=== PATIENT | male | born 1935 | race Caucasian/White ===

== ENCOUNTER 2018-01-06 21:32 | Inpatient (IN) | payer OTHER ==
[~2018-01-06] VITALS: Ht 165.1 cm; Wt 83.9 kg
[2018-01-06] MEDS ORDERED: CARVEDILOL12.5 M1 PO (22:17)
[2018-01-06] MEDS ORDERED: GLUCOTROL10 MG PO (22:17)
[2018-01-06] MEDS ORDERED: LOSARTAN POTAS100 M1 PO (22:18)
[2018-01-06] MEDS ORDERED: METFORMIN HCL1000 MG PO (22:19)
[2018-01-06] MEDS ORDERED: ASPIR 8181 MG PO (22:19)
[2018-01-06 22:43] LABS: BASOPHIL % 0.6 % (0-2); PLATELET COUNT 273 x10^3mcL (130-400)
[2018-01-06 22:53] LABS: CALCIUM 8.2 mg/dL (8.5-10.1); CARBON DIOXIDE 24.4 mmol/L (21-32); CHLORIDE SERUM 97 mmol/L (98-107); CREATININE SERUM 1.7 mg/dL (0.7-1.3); GLUCOSE SERUM 133 mg/dL (74-106); POTASSIUM SERUM 4.2 mmol/L (3.5-5.1); SODIUM SERUM 130 mmol/L (136-145)
[2018-01-06 22:58] LABS: ALBUMIN 3.4 g/dL (3.4-5.0); ALKALINE PHOSPHATASE 96 U/L (46-116); ALT/SGPT 17 U/L (16-63); AST/SGOT 22 U/L (15-37); TOTAL PROTEIN, SERUM 7.9 g/dL (6.4-8.2)
[2018-01-06 23:22] LABS: UA SPECIFIC GRAVITY >=1.030 (1.005-1.035); microscopic required? YES; urine erythrocyte NEGATIVE (NEGATIVE)
[2018-01-07 00:37] VITALS: BP 129/61
[2018-01-07 01:01] LABS: CHOLESTEROL/HDL RATIO 4.4; MAGNESIUM 1.4 mg/dL (1.8-2.4); PHOSPHOROUS 3.6 mg/dL (2.5-4.9)
[2018-01-07 01:02] LABS: T3 TOTAL 0.47 ng/mL
[2018-01-07 01:16] LABS: FREE T4 0.84 ng/dL (0.76-1.46); FREE THYROXINE INDEX 1.8 ug/dL (1.4-4.5); T4(THYROXINE) 4.8 ug/dL (4.7-13.3)
[2018-01-07 06:25] VITALS: BP 99/51
[2018-01-07 06:26] VITALS: BP 99/51
[2018-01-07 06:55] LABS: BASOPHIL % 0.3 % (0-2); PLATELET COUNT 234 x10^3mcL (130-400); RED CELL DISTRIBUTION WIDTH 13.7 % (11.5-14.5)
[2018-01-07 08:10] LABS: CALCIUM 7.5 mg/dL (8.5-10.1); CARBON DIOXIDE 21.9 mmol/L (21-32); CHLORIDE SERUM 101 mmol/L (98-107); CREATININE SERUM 1.4 mg/dL (0.7-1.3); MAGNESIUM 1.4 mg/dL (1.8-2.4); POTASSIUM SERUM 3.8 mmol/L (3.5-5.1); SODIUM SERUM 132 mmol/L (136-145)
[2018-01-07 08:12] LABS: GLUCOSE SERUM 54 mg/dL (74-106)
[2018-01-07] MEDS ORDERED: GLUCOTROL10 MG PO (09:02)
[2018-01-07 11:54] VITALS: BP 123/56
[2018-01-07 17:51] VITALS: BP 141/70
[2018-01-07 19:20] VITALS: BP 129/52
[2018-01-08 06:10] VITALS: BP 126/48
[2018-01-08 06:55] LABS: BASOPHIL % 0.4 % (0-2); PLATELET COUNT 253 x10^3mcL (130-400); RED CELL DISTRIBUTION WIDTH 14.1 % (11.5-14.5)
[2018-01-08 07:27] LABS: CALCIUM 8.6 mg/dL (8.5-10.1); CHLORIDE SERUM 103 mmol/L (98-107); GLUCOSE SERUM 110 mg/dL (74-106); MAGNESIUM 1.9 mg/dL (1.8-2.4); PHOSPHOROUS 3.1 mg/dL (2.5-4.9); SODIUM SERUM 134 mmol/L (136-145)
[2018-01-08 09:49] VITALS: BP 115/54
[2018-01-08 09:58] VITALS: Ht 165.1 cm; Wt 83.9 kg
[2018-01-08 14:07] VITALS: BP 115/54
== END 2018-01-08 15:50 | disposition home or self-care (01) | DRG 637 ==
LOC: ED 21:32 → DU 23:45
PROVIDERS: Emergency Medicine; Family Medicine
DX: E11.649 Type 2 diabetes mellitus with hypoglycemia without coma (principal); G93.41 Metabolic encephalopathy; E87.1 Hypo-osmolality and hyponatremia; N39.0 Urinary tract infection, site not specified; N17.0 Acute kidney failure with tubular necrosis; E83.42 Hypomagnesemia; R80.9 Proteinuria, unspecified; E86.0 Dehydration; D64.9 Anemia, unspecified; Z68.32 Body mass index [BMI] 32.0-32.9, adult; Z79.84 Long term (current) use of oral hypoglycemic drugs; Z79.82 Long term (current) use of aspirin
CPT/HCPCS: 82962; 83880; 84439; J0696; J3475; J3490; J7030; Q0092

== ENCOUNTER 2019-05-14 21:58 | Inpatient (IN) | payer OTHER ==
[~2019-05-14] VITALS: Ht 165.1 cm; Wt 81.2 kg
[~2019-05-14 21:58] MED LIST: ASPIR 8181 MG PO; CARVEDILOL12.5 M1 PO; GLUCOTROL10 MG PO; LOSARTAN POTAS100 M1 PO; METFORMIN HCL1000 MG PO
--- NOTE | 2019-05-14 22:12 | NUR ---
PT SENT TO WAIT IN LOBBY. NAD AT THIS TIME
--- NOTE | 2019-05-14 22:45 | NUR ---
PT BROUGHT TO ED BY SON. PT C/C IS RIGHT SIDED MID ABD PAIN. STS PAIN IS SHARP IN NATURE AND 5/10. PT STS HE BEGAN TO VOMIT CLEAR LIQUIDS AT HOME 3 HOURS AGO. PT IS AAOX4, DENIES HEADACHE. DENIES DIARREAH. PT ABLE TO AMBULATE STEADILY WITH A CANE. PT CONNECTED TO MONITOR. AWAITING MSE.
--- NOTE | 2019-05-14 22:47 | NUR ---
PT TAKEN TO X-RAY.
--- NOTE | 2019-05-14 23:13 | NUR ---
LAB AT BEDSIDE.
[2019-05-14 23:21] LABS: BASOPHIL % 0.2 % (0-2); PLATELET COUNT 256 x10^3mcL (130-400); RED CELL DISTRIBUTION WIDTH 13.6 % (11.5-14.5)
[2019-05-14 23:27] LABS: CALCIUM 7.3 mg/dL (8.5-10.1); CARBON DIOXIDE 22.3 mmol/L (21-32); CHLORIDE SERUM 101 mmol/L (98-107); CREATININE SERUM 1.4 mg/dL (0.7-1.3); GLUCOSE SERUM 160 mg/dL (74-106); POTASSIUM SERUM 4.4 mmol/L (3.5-5.1); SODIUM SERUM 138 mmol/L (136-145)
[2019-05-14 23:36] LABS: ALKALINE PHOSPHATASE 135 U/L (46-116); ALT/SGPT 21 U/L (16-63); AST/SGOT 17 U/L (15-37); BILIRUBIN TOTAL 0.6 mg/dL (0.20-1.00); LIPASE 168 IU/L (73-393)
[2019-05-14 23:37] LABS: ALBUMIN 3.3 g/dL (3.4-5.0)
[2019-05-14 23:43] LABS: UA SPECIFIC GRAVITY >=1.030 (1.005-1.035); microscopic required? YES; urine erythrocyte TRACE (NEGATIVE)
--- NOTE | 2019-05-14 23:54 | NUR ---
PT PROVIDED WITH WARM BLANKET AT THIS TIME.
[2019-05-15] MEDS ORDERED: ATORVASTATIN CA40 M1 PO (02:58)
[2019-05-15] MEDS ORDERED: METFORMIN HCL1000 MG PO (02:59)
--- NOTE | 2019-05-15 03:05 | NUR ---
REPORT CALLED AND GIVEN TO TALISHA PEARSON.
[2019-05-15 03:18] VITALS: BP 156/76
--- NOTE | 2019-05-15 03:30 | NUR ---
RECEIVED FRO ER DEPT VIA [facility] ACCOMPANIED BY ER NURSE WITH THE [facility] COMPLAINTS OF RUQ ABDOMINAL PAIN ACCOMPANIED WITH NON-BILOUS EMESIS/NON-BLOODY EMESIS X DAY TECHNICAL SERVICE REP. ROUTINE ADMISSION CARE RENDERED. PLACED COMFORTABLY IN BED. VITAL SIGNS TAKEN AND RECORDED. PAIN LEVEL UPON ADMISSION TO THE UNIT 0, WAS GIVEN TORALDO 30GM IV AT ER WITH TOTAL RELIEF. PLACED A CALL TO [facility] , DR PRADO LIFTER/DRIVER, AWAITNG FOR RETURN CALL.
--- NOTE | 2019-05-15 05:43 | NUR ---
DR PRADO RETURNED THE CALL, GAVE ADMISSION ORDERS AND NOTED,
[2019-05-15 06:01] VITALS: BP 159/75
--- NOTE | 2019-05-15 08:00 | NUR ---
RECEIVED IN NO RESOP. DISTRESS. AWAKE, ALERT AND ORIENTED. BP SLIGHTLY ELEVTED BUT PT ASYMPTOMATIC. DENIES CHEST DISCOMFORT, LIGHTHEADED OR ANY OTHER DISCOMFORT. WILL MEDICATE FOR ELEVETED BP PER ORDER. IVF INFUSING WELL AND SITE CLEAR. CALL LIGHT WITHIN REACH. WILL CONTINUE WITH PLAN OF CARE.
[2019-05-15 08:41] VITALS: BP 167/82
[2019-05-15 14:46] VITALS: BP 167/82
--- NOTE | 2019-05-15 15:07 | NUR ---
PT DC'D HOME IN NO RESP. DISTRESS. AWAKE AND ALERT. FOLLOWS COMMANDS. DC INSTRUCTIONS REVIEWED WITH PT AND SON. RX GIVEN. HL REMOVED AND SITE WITH NO REDNESS OR SWELLING.PT DENIES PAIN OR DISCOMFORT AT THE TIMES.PERSONAL BELONGINGS TAKEN HOME.
== END 2019-05-15 15:07 | disposition home or self-care (01) | DRG 392 ==
LOC: ED 21:58 → MU 05-15 02:21
PROVIDERS: Emergency Medicine; ADMIT Internal Medicine Pulmonary Disease
DX: R10.11 Right upper quadrant pain (principal); R11.2 Nausea with vomiting, unspecified; K80.80 Other cholelithiasis without obstruction; J84.10 Pulmonary fibrosis, unspecified; K57.90 Diverticulosis of intestine, part unspecified, without perforation or abscess without bleeding; K40.90 Unilateral inguinal hernia, without obstruction or gangrene, not specified as recurrent; I12.9 Hypertensive chronic kidney disease with stage 1 through stage 4 chronic kidney disease, or unspecified chronic kidney disease; N18.9 Chronic kidney disease, unspecified; E11.22 Type 2 diabetes mellitus with diabetic chronic kidney disease; E78.5 Hyperlipidemia, unspecified; Z87.442 Personal history of urinary calculi; Z79.84 Long term (current) use of oral hypoglycemic drugs
CPT/HCPCS: 82962; G0378; J1885; J2405; Q0092

== ENCOUNTER 2019-05-21 19:16 | Inpatient (IN) | payer OTHER ==
[~2019-05-21] VITALS: Ht 165.1 cm; Wt 80.8 kg
[~2019-05-21 19:16] MED LIST changes: +ATORVASTATIN CA40 M1 PO
[2019-05-21 20:16] LABS: CALCIUM 7.1 mg/dL (8.5-10.1); CARBON DIOXIDE 19.5 mmol/L (21-32); CHLORIDE SERUM 103 mmol/L (98-107); CREATININE SERUM 2.3 mg/dL (0.7-1.3); GLUCOSE SERUM 224 mg/dL (74-106); POTASSIUM SERUM 3.6 mmol/L (3.5-5.1); SODIUM SERUM 139 mmol/L (136-145)
[2019-05-21 20:23] LABS: BASOPHIL % 0.3 % (0-2); PLATELET COUNT 202 x10^3mcL (130-400)
[2019-05-21 20:24] LABS: RED CELL DISTRIBUTION WIDTH 15.1 % (11.5-14.5)
[2019-05-21 20:28] LABS: ALBUMIN 2.3 g/dL (3.4-5.0); ALKALINE PHOSPHATASE 129 U/L (46-116); ALT/SGPT 35 U/L (16-63); AST/SGOT 59 U/L (15-37); BILIRUBIN TOTAL 0.7 mg/dL (0.20-1.00); TOTAL PROTEIN, SERUM 6.5 g/dL (6.4-8.2)
[2019-05-21 20:39] LABS: T3 TOTAL 0.63 ng/mL
[2019-05-21 20:43] LABS: CK-MB 0.7 ng/mL (0-3.6)
[2019-05-21 20:48] LABS: microscopic required? YES; urine erythrocyte 2+ (NEGATIVE)
[2019-05-21 20:51] LABS: FREE T4 1.27 ng/dL (0.76-1.46); FREE THYROXINE INDEX 2.3 ug/dL (1.4-4.5)
[2019-05-21 21:03] LABS: ERYTHROCYTE SED RATE 105 mm/hr (0-20)
[2019-05-21 23:51] VITALS: BP 101/68
[2019-05-21 23:58] VITALS: Ht 165.1 cm; Wt 80.8 kg
[2019-05-22 05:53] VITALS: BP 140/93
[2019-05-22 07:20] LABS: BASOPHIL % 0 % (0-2); PLATELET COUNT 221 x10^3mcL (130-400)
[2019-05-22 07:38] LABS: CALCIUM 7.7 mg/dL (8.5-10.1); CARBON DIOXIDE 18.6 mmol/L (21-32); CHLORIDE SERUM 104 mmol/L (98-107); CREATININE SERUM 2.1 mg/dL (0.7-1.3); GLUCOSE SERUM 232 mg/dL (74-106); POTASSIUM SERUM 4.1 mmol/L (3.5-5.1); SODIUM SERUM 141 mmol/L (136-145)
[2019-05-22 08:43] VITALS: BP 151/73
[2019-05-22 13:42] VITALS: BP 112/58
[2019-05-22 17:27] VITALS: BP 113/58
[2019-05-22 20:49] VITALS: BP 125/56
[2019-05-23 01:30] VITALS: BP 127/87
[2019-05-23 05:31] VITALS: BP 120/69
[2019-05-23 11:45] LABS: CALCIUM 7.1 mg/dL (8.5-10.1); CARBON DIOXIDE 21.8 mmol/L (21-32); CHLORIDE SERUM 109 mmol/L (98-107); CREATININE SERUM 2.1 mg/dL (0.7-1.3); GLUCOSE SERUM 222 mg/dL (74-106); POTASSIUM SERUM 4.2 mmol/L (3.5-5.1); SODIUM SERUM 144 mmol/L (136-145)
[2019-05-23 11:50] LABS: ALKALINE PHOSPHATASE 164 U/L (46-116); ALT/SGPT 95 U/L (16-63); AST/SGOT 243 U/L (15-37); BILIRUBIN TOTAL 0.53 mg/dL (0.20-1.00)
[2019-05-23 12:22] VITALS: BP 127/69
[2019-05-23 13:04] LABS: PLATELET COUNT 151 x10^3mcL (130-400)
[2019-05-23 13:24] LABS: RED CELL DISTRIBUTION WIDTH 15.5 % (11.5-14.5)
[2019-05-23 13:41] LABS: BAND NEUTROPHIL 1 % (0-10); BASOPHIL 1 % (0-2); MONOCYTE 1 % (0-7); SEGMENTED NEUTROPHILS 93 % (37-75)
[2019-05-23 13:43] LABS: PLATELET MORPHOLOGY PLATELETS DECREASED; rbc morphology (normal/abnorm) ABNORMAL (NORMAL)
[2019-05-23 13:56] VITALS: BP 133/64
[2019-05-23 17:21] VITALS: BP 118/64
[2019-05-23 21:34] VITALS: BP 131/57
[2019-05-24 05:35] VITALS: BP 107/61
[2019-05-24 07:24] LABS: PLATELET COUNT 177 x10^3mcL (130-400)
[2019-05-24 07:45] LABS: ALKALINE PHOSPHATASE 147 U/L (46-116); ALT/SGPT 89 U/L (16-63); AST/SGOT 171 U/L (15-37); BILIRUBIN TOTAL 0.4 mg/dL (0.20-1.00); CALCIUM 7.1 mg/dL (8.5-10.1); CARBON DIOXIDE 19.6 mmol/L (21-32); CHLORIDE SERUM 105 mmol/L (98-107); CREATININE SERUM 1.6 mg/dL (0.7-1.3); GLUCOSE SERUM 313 mg/dL (74-106); MAGNESIUM 1.3 mg/dL (1.8-2.4); SODIUM SERUM 139 mmol/L (136-145); TOTAL PROTEIN, SERUM 6.2 g/dL (6.4-8.2)
[2019-05-24 09:28] VITALS: BP 132/58
[2019-05-24 12:12] LABS: BAND NEUTROPHIL 0 % (0-10); BASOPHIL 0 % (0-2); PLATELET MORPHOLOGY PLATELETS DECREASED; SEGMENTED NEUTROPHILS 98 % (37-75)
[2019-05-24 12:13] LABS: rbc morphology (normal/abnorm) ABNORMAL (NORMAL)
[2019-05-24 12:44] VITALS: BP 136/67
[2019-05-24 17:53] VITALS: BP 137/68
[2019-05-24 20:23] VITALS: BP 134/89
[2019-05-25 05:37] VITALS: BP 126/61
[2019-05-25 09:35] VITALS: BP 131/63
[2019-05-25 09:52] LABS: BASOPHIL % 0.2 % (0-2); PLATELET COUNT 172 x10^3mcL (130-400)
[2019-05-25 09:58] LABS: RED CELL DISTRIBUTION WIDTH 15.9 % (11.5-14.5)
[2019-05-25 10:00] LABS: ALKALINE PHOSPHATASE 123 U/L (46-116); ALT/SGPT 61 U/L (16-63); AST/SGOT 68 U/L (15-37); BILIRUBIN TOTAL 0.4 mg/dL (0.20-1.00); CARBON DIOXIDE 19.8 mmol/L (21-32); CHLORIDE SERUM 108 mmol/L (98-107); CREATININE SERUM 1.5 mg/dL (0.7-1.3); GLUCOSE SERUM 254 mg/dL (74-106); POTASSIUM SERUM 3.5 mmol/L (3.5-5.1); SODIUM SERUM 141 mmol/L (136-145)
[2019-05-25 10:04] LABS: ALBUMIN 1.9 g/dL (3.4-5.0); TOTAL PROTEIN, SERUM 5.7 g/dL (6.4-8.2)
[2019-05-25 13:05] VITALS: BP 144/65
[2019-05-25 13:10] VITALS: BP 144/65
== END 2019-05-25 15:38 | disposition home health service (06) | DRG 854 ==
LOC: ED 19:16 → DU 22:18
PROVIDERS: Anesthesiology; Internal Medicine Pulmonary Disease; Specialist; Surgery; ADMIT Internal Medicine
PROC: 0FQ Hepatobiliary System and Pancreas, Repair (ICD-10-PCS; 2019-05-23)
PROC: 0FT44ZZ Resection of Gallbladder, Percutaneous Endoscopic Approach (ICD-10-PCS; principal; 2019-05-23 09:00)
DX: A41.9 Sepsis, unspecified organism (principal); N39.0 Urinary tract infection, site not specified; K81.0 Acute cholecystitis; I12.0 Hypertensive chronic kidney disease with stage 5 chronic kidney disease or end stage renal disease; K82.8 Other specified diseases of gallbladder; K82.A1 Gangrene of gallbladder in cholecystitis; E11.65 Type 2 diabetes mellitus with hyperglycemia; E11.22 Type 2 diabetes mellitus with diabetic chronic kidney disease; N18.9 Chronic kidney disease, unspecified; E86.0 Dehydration; E78.5 Hyperlipidemia, unspecified; Z68.31 Body mass index [BMI] 31.0-31.9, adult; Z79.82 Long term (current) use of aspirin; Z79.84 Long term (current) use of oral hypoglycemic drugs
CPT/HCPCS: 36600; 78226; 82962; 84439; 97110-GP; 97116-GP; 97530-GP; A9537; G0378; J0690; J0696; J0885-EC; J1644; J1815; J2270; J2405; J2543; J2704; J2710; J3010; J3370; J3490; J7030; J7040; J7042; J7060; J7120; Q0092

== ENCOUNTER 2019-09-15 08:53 | Emergency (ER) | payer OTHER ==
[~2019-09-15] VITALS: Ht 175.3 cm; Wt 83.9 kg
[2019-09-15 08:55] VITALS: Ht 175.3 cm; Wt 83.9 kg
[2019-09-15 09:39] LABS: BASOPHIL % 0.4 % (0-2); PLATELET COUNT 235 x10^3mcL (130-400)
[2019-09-15 09:43] LABS: RED CELL DISTRIBUTION WIDTH 16.4 % (11.5-14.5)
[2019-09-15 10:53] LABS: FREE T4 0.87 ng/dL (0.76-1.46); T4(THYROXINE) 5.8 ug/dL (4.7-13.3)
[2019-09-15 10:56] LABS: CALCIUM 8.2 mg/dL (8.5-10.1); CARBON DIOXIDE 24.7 mmol/L (21-32); CHLORIDE SERUM 104 mmol/L (98-107); CREATININE SERUM 2.1 mg/dL (0.7-1.3); GLUCOSE SERUM 156 mg/dL (74-106); POTASSIUM SERUM 4.3 mmol/L (3.5-5.1); SODIUM SERUM 140 mmol/L (136-145)
[2019-09-15 11:00] LABS: ALKALINE PHOSPHATASE 153 U/L (46-116); ALT/SGPT 20 U/L (16-63); AST/SGOT 13 U/L (15-37); BILIRUBIN TOTAL 0.45 mg/dL (0.20-1.00); HDL CHOLESTEROL 39 mg/dL (40-60); LIPASE 176 IU/L (73-393); TOTAL PROTEIN, SERUM 7.3 g/dL (6.4-8.2); TRIGLYCERIDES 120 mg/dL (<150)
[2019-09-15 11:02] LABS: ALBUMIN 3.3 g/dL (3.4-5.0); CHOLESTEROL 105 mg/dL (<200); CHOLESTEROL/HDL RATIO 2.7
[2019-09-15 11:20] VITALS: BP 158/75
[2019-09-15 11:33] LABS: T3 TOTAL 0.96 ng/mL
== END 2019-09-15 11:20 | disposition home or self-care (01) ==
LOC: ED 08:53
PROVIDERS: Specialist
DX: S20.412A Abrasion of left back wall of thorax, initial encounter (principal); E78.00 Pure hypercholesterolemia, unspecified; E11.22 Type 2 diabetes mellitus with diabetic chronic kidney disease; N18.9 Chronic kidney disease, unspecified; W17.89XA Other fall from one level to another, initial encounter; Y93.89 Activity, other specified; Y92.89 Other specified places as the place of occurrence of the external cause; Y99.8 Other external cause status; D63.1 Anemia in chronic kidney disease
CPT/HCPCS: 36415; 83880; 84439